=== PATIENT | female | born 1945 | race Caucasian/White ===

== ENCOUNTER 2019-06-03 18:25 | Observation (INO) ==
--- NOTE | 2019-06-03 18:53 | ERNOTE ---
<[facility] - Last Filed: 06/03/19 19:47> Abdominal HPI - General Chief Complaint: Abdominal Pain Time Seen by Provider: 06/03/19 18:38 Source: patient Exam Limitations: no limitations - Immun/Allergies/Home Medications Immunizatons: IMMUNIZATION HX Immunizations Up to Date Yes Allergies/Adverse Reactions: Allergies Sulfa (Sulfonamide Antibiotics) Allergy (Mild, Verified 06/03/19 18:40) RASH, FACE SWELLING Home Medications: HOME MEDICATIONS Aspirin [Aspirin Chewable] 81 mg PO DAILY 12/05/13 [Last Taken Unknown] Calcium Carbonate [Caltrate 600] 2 tab PO DAILY 12/05/13 [Last Taken Unknown] Simvastatin 20 mg PO HS 12/05/13 [Last Taken Unknown] Levothyroxine Sodium [Synthroid] 100 mcg PO DAILY 04/07/14 [Last Taken Unknown] - History of Present Illness Narrative: Patient presents with right lower quadrant abdominal pain that started yesterday morning. She rates her pain is at least moderate in severity. Timing: constant Quality: moderate Activities at Onset: none Associated Symptoms: Present: denies symptoms Prior Abdominal Problems: Present: none Prior Treatment: Absent: recently seen Review of Systems - Review of Systems Constitutional: Present: See HPI EYE: Present: no symptoms reported ENT: Present: no symptoms reported Respiratory: Present: no symptoms reported Cardiology: Present: no symptoms reported Gastrointestinal/Abdominal: Present: See HPI Genitourinary: Present: no symptoms reported Musculoskeletal: Present: no symptoms reported Skin: Present: no symptoms reported Neurological: Present: no symptoms reported Endocrine: Present: no symptoms reported Hematologic/Lymphatic: Present: no symptoms reported Psych: Present: no symptoms reported Medical History (Updated 06/03/19 @ 18:42 by Princess Reynolds RN) History of hypothyroidism Hx of diabetes mellitus Hx of hyperlipidemia Surgical History: Surgical History (Updated 06/03/19 @ 18:42 by Princess Reynolds RN) Hx of cholecystectomy Hx of left mastectomy Family History: Family History (Updated 06/03/19 @ 18:42 by Princess Reynolds RN) Other No pertinent family history Social History: (Last Reviewed 06/03/19 @ 18:42 by Princess Reynolds RN) Tobacco: Smoking Status: Former smoker Physical Exam - Physical Exam General Appearance: Present: wd/wn, alert, moderate distress Head Exam: Present: normal inspection, no evidence of injury Eye Exam: Normal inspection: bilateral, PERRL: bilateral Ears, Nose, Throat: Present: normal ENT inspection, H, normal pharynx Neck: Present: normal inspection, nontender Respiratory: Present: no respiratory distress, normal breath sounds, no accessory muscle use, chest nontender, lungs clear Cardiovascular/Chest: Present: regular rate, rhythm, no murmur, normal peripheral pulses Gastrointestinal/Abdominal: Present: normal bowel sounds, nondistended, soft, no organomegaly, tenderness - Right lower quadrant with an equivocal McBurney sign, rebound Rectal Exam: Present: deferred Back Exam: Present: normal inspection, normal range of motion Extremity Exam: Present: normal inspection, non-tender, no edema, normal range of motion Neurological Exam: Present: alert, oriented, normal mood/affect Skin Exam: Present: normal color, warm/dry Lymphatic Exam: Present: no adenopathy Progress - Results and Orders Patient's Lab Results:: I have reviewed the patient's lab results. - Vital Signs Patient's Vital Signs:: I have reviewed the patient's vital signs. Vital Signs: Vital Signs 06/03/19 18:36 Temperature 36.9 C Pulse Rate 57 L Respiratory Rate 15 Blood Pressure 186/79 H O2 Sat by Pulse Oximetry 95 - CT/Ultrasound CT/Ultrasound Narrative: CT the abdomen and pelvis will be reviewed by Dr. Alberto - Progress/Reassessment Chief Complaint: Abdominal Pain - Transfer of Care Physician Sign Out: Dev Villareal Receiving Physician: Doc Alberto Plan - Plan Plan: Laboratory examination and CT of the abdomen and pelvis will be undertaken here in the emergency department. Patient is very suspicious for possible appendicitis and we will obtain the CAT scan to rule that out. Patient be turned over to Dr. Alberto at 8 PM. Departure Clinical Impression: Appendicitis Qualifiers: Appendicitis type: acute appendicitis Acute appendicitis type: with localized peritonitis Appendicitis gangrene presence: without gangrene Appendicitis perforation presence: without perforation Appendicitis abscess presence: without abscess Qualified Code(s): K35.30 - Acute appendicitis with localized peritonitis, without perforation or gangrene - Departure Disposition: Still a patient Condition: Stable <Doc Alberto - Last Filed: 06/04/19 01:04> Abdominal HPI - Immun/Allergies/Home Medications Immunizatons: IMMUNIZATION HX Immunizations Up to Date Yes Medical History (Updated 06/03/19 @ 22:41 by Doc Alberto DO) History of hypothyroidism Hx of diabetes mellitus Hx of hyperlipidemia Surgical History: Surgical History (Updated 06/03/19 @ 18:42 by Princess Reynolds, NIC) Hx of cholecystectomy Hx of left mastectomy Family History: Family History (Updated 06/03/19 @ 18:42 by Princess Reynolds, RN) Other No pertinent family history Social History: (Last Reviewed 06/03/19 @ 22:48 by Stefanie Judd MD) Tobacco: Smoking Status: Current every day smoker Physical Exam - Physical Exam General Appearance: Present: wd/wn, alert, mild distress Head Exam: Present: normal inspection, no evidence of injury Respiratory: Present: no respiratory distress, no accessory muscle use Gastrointestinal/Abdominal: Present: normal bowel sounds, tenderness - RLQ and right flank, rebound Neurological Exam: Present: alert, oriented, normal mood/affect Progress - Results and Orders Patient's Lab Results:: I have reviewed the patient's lab results. - Vital Signs Patient's Vital Signs:: I have reviewed the patient's vital signs. Vital Signs: Vital Signs 06/03/19 18:36 06/03/19 19:02 06/03/19 21:09 Temperature 36.9 C Pulse Rate 57 L 59 L 54 L Respiratory Rate 15 15 15 Blood Pressure 186/79 H 165/73 H O2 Sat by Pulse Oximetry 95 97 99 06/03/19 21:46 Temperature Pulse Rate 55 L Respiratory Rate 14 Blood Pressure 170/77 H O2 Sat by Pulse Oximetry 96 - CT/Ultrasound CT/Ultrasound Narrative: CT abdomen pelvis with IV and oral contrast: IMPRESSION: Findings consistent with acute appendicitis. No free air. No fluid collections. Electronically signed by Laurie Wooten D.O.. - Progress/Reassessment Progress Note-Subjective: 06/03/19 21:[address] Judd he will be in to see the patient shortly. 06/03/19 22:40 Dr. Judd has seen and evaluated the patient surgery crew is being called in she will go straight to surgery from the ED.
[2019-06-03 19:00] LABS: Hematocrit 40.8 % (37.0-47.0); Hemoglobin 13.4 gm/dL (12.5-16.0); Mean Cell Volume 97.4 fl (78-100); Mean Corpuscular Hgb Conc 32.8 g/dl (32-36); Mean Platelet Volume 9.3 fl (8-12.5); Neutrophil # 4.3 K/mm3 (1.3-6.0); Platelet Count 242 K/mm3 (150-450); Red Blood Count 4.19 M/mm3 (4.2-5.4); Red Cell Distribution Width 13.2 % (11.5-14.0); White Blood Count 7.3 K/mm3 (4.0-10.5)
[2019-06-03] MEDS: NORMAL SALINE 1,000 ML IV ONE (19:01)
[2019-06-03] MEDS ORDERED: DIATRIZOATE MEGLUMINE, SODIUM 30 ML BTL PO ONE (19:03)
[2019-06-03 19:13] LABS: Albumin * 3.4 gm/dl (3.4-5.0); Anion Gap 7.6 mmol/L (6.8-13.8); BUN/Creatinine Ratio 18.3 (9.0-21.6); Bilirubin, Total 0.5 mg/dL (0.0-1.1); Ca. Corrected For Albumin 9.4 mg/dL (8.4-10.2); Calcium * 9.2 mg/dL (7.9-10.9); Carbon Dioxide 31.1 mmol/L (24-32.6); Magnesium 1.8 mg/dL (1.2-2.8); Potassium 3.7 mmol/L (3.4-4.6); Total Protein 6.8 gm/dL (6.2-8.2)
[2019-06-03 19:14] LABS: Urine Bilirubin Negative (NEGATIVE); Urine Blood Negative /ul (NEGATIVE); Urine Ketone Negative (NEGATIVE); Urine Nitrite Negative (NEGATIVE); Urine Protein Negative (NEGATIVE); Urine Urobilinogen Normal (NORMAL)
[2019-06-03 19:22] LABS: Urine Appearance Clear (CLEAR); Urine Bacteria 1+; Urine Color Yellow; Urine RBC None Seen /hpf (0-5); Urine WBC TRACE /hpf (0-5)
[2019-06-03] MEDS ORDERED: LABETALOL HCL 5 MG/ML VIAL IV ONE (22:50)
--- NOTE | 2019-06-03 22:59 | HP ---
Chief Complaint - Chief Complaint Date of Service: 06/03/19 Time of Service: 22:44 Chief Complaint: abdominal pain, appendicitis History of Present Illness: Woke up yesterday with upper abdominal pain. Migrated to [facility]. Saw [employer] and had CBC and U/A. Told her urine was OK but WBC was elevated, and she should be seen for a CT. CT shows acute appendicitis. She had a colonoscopy in 2013. Small tubular adenoma and serrated adenomas removed from cecum---larger polyp was tattooed. Moves her bowels QOD regularly without change. Has frequent heartburn, uses Rolaids. Medical History (Updated 06/03/19 @ 22:41 by Doc Alberto DO) History of hypothyroidism Hx of diabetes mellitus Hx of hyperlipidemia Surgical History: Surgical History (Updated 06/03/19 @ 18:42 by Princess Reynolds, NIC) Hx of cholecystectomy Hx of left mastectomy Family History: Family History (Updated 06/03/19 @ 18:42 by Princess Reynolds, RN) Other No pertinent family history Social History: (Last Reviewed 06/03/19 @ 22:48 by Stefanie Judd MD) Tobacco: Smoking Status: Former smoker Review Of Systems (GEN) - Review of Systems Generalized/Overall Review: Absent: Chills, Fever, Weight loss EENTM: Present: No Symptoms Reported, Other - cataract surgery this year went well Respiratory: Absent: Cough, Shortness of Breath Cardiac: Present: Other - told her LV was large on EKG---no hypertensive meds or chest pain. Absent: Chest Pain, Palpitations Abdominal: Present: Abdominal Pain. Absent: Nausea, Vomiting Genitourinary: Present: No Symptoms Reported Musculoskeletal: Present: No Symptoms Reported Neurological: Present: No Symptoms Reported Skin: Present: No Symptoms Reported Endocrine: Present: No Symptoms Reported Immunizations: IMMUNIZATION HX Immunizations Up to Date Yes Allergies/Adverse Reactions: Allergies Allergy/AdvReac Type Severity Reaction Status Date / Time Sulfa (Sulfonamide Allergy Mild RASH, FACE Verified 06/03/19 18:40 Antibiotics) SWELLING Home Medications: HOME MEDICATIONS Aspirin [Aspirin Chewable] 81 mg PO DAILY 12/05/13 [Last Taken Unknown] Calcium Carbonate [Caltrate 600] 2 tab PO DAILY 12/05/13 [Last Taken Unknown] Simvastatin 20 mg PO HS 12/05/13 [Last Taken Unknown] Levothyroxine Sodium [Synthroid] 100 mcg PO DAILY 04/07/14 [Last Taken Unknown] Exam - Exam Vital Signs: Vital Signs - Last Taken Temp 36.5 C 06/03/19 22:43 Pulse 68 06/03/19 22:43 Resp 16 06/03/19 22:43 BP 196/95 H 06/03/19 22:43 Pulse Ox 96 06/03/19 22:43 Constitutional: Present: Alert, Oriented x3, Cooperative, Well developed, Well nourished, Mild distress ENT Exam: Present: normal ENT inspection, other - dentures. Mallampati 2 Eye Exam: bilateral eye: normal inspection Neck: Present: non-tender, full range of motion, normal inspection Back Exam: Present: normal inspection, no CVA tenderness Breasts: Present: Other - left mastectomy Respiratory: Present: lungs clear, normal breath sounds, no respiratory distress Cardiovascular/Chest: Present: regular rate, rhythm, no murmur, other - varicosities, no calf tenderness Abdomen: Present: other - tender RLQ /Rectal: Present: Exam deferred Extremity: Present: normal range of motion, normal inspection, other - varicosities. Absent: calf tenderness, lower extremity edema Skin Exam: Present: warm/dry Neurologic: Present: life agent II-XII nml as tested, normal cerebellar test, alert, normal mood/affect, oriented x 3 Appearance: Present: appropriate appearance, appropriate insight, neat Eye contact: Present: cooperative, good eye contact, normal speech Thoughts: Present: normal thought pattern Diagnostic Studies: Abnormal Lab Results 06/03/19 06/03/19 06/03/19 Range/Units 18:55 18:55 19:10 RBC 4.19 L (4.2-5.4) M/mm3 MCH 32.0 H (27-31) pg Plasma Sodium 143 H (130-142) mmol/L Chloride 107 H (97-106) mmol/L Est GFR (Non-Af Amer) 49 L (60-130) mL/min Random Glucose 139 H (70-110) mg/dL Urine Glucose (UA) 100 H (NEGATIVE) mg/dL Urine WBC Trace H (0-5) /hpf Urine Bacteria 1+ H (NONE) Laboratory Results WBC 7.3 K/mm3 (4.0-10.5) 06/03/19 18:55 RBC 4.19 M/mm3 (4.2-5.4) L 06/03/19 18:55 Hgb 13.4 gm/dL (12.5-16.0) 06/03/19 18:55 Hct 40.8 % (37.0-47.0) 06/03/19 18:55 MCV 97.4 fl (78-100) 06/03/19 18:55 MCH 32.0 pg (27-31) H 06/03/19 18:55 MCHC 32.8 g/dl (32-36) 06/03/19 18:55 RDW 13.2 % (11.5-14.0) 06/03/19 18:55 Plt Count 242 K/mm3 (150-450) 06/03/19 18:55 MPV 9.3 fl (8-12.5) 06/03/19 18:55 Immature Gran % (Auto) 0.30 % (0.001-0.429) 06/03/19 18:55 Immature Gran # (Auto) 0.02 K/mm3 (0.000-0.0310) 06/03/19 18:55 59.0 % (42-75.0) 06/03/19 18:55 30.6 % (20-51) 06/03/19 18:55 8.1 % (0.0-9) 06/03/19 18:55 1.5 % (0.0-3.0) 06/03/19 18:55 0.5 % (0.0-1.0) 06/03/19 18:55 Nucleated RBC % 0.0 k/mm3 (0-1) 06/03/19 18:55 4.3 K/mm3 (1.3-6.0) 06/03/19 18:55 2.23 k/mm3 (1.5-3.5) 06/03/19 18:55 0.6 k/mm3 (0.0-1.0) 06/03/19 18:55 0.1 k/mm3 (0.0-0.7) 06/03/19 18:55 Absolute Basophils 0.0 k/mm3 (0.0-0.1) 06/03/19 18:55 Sodium 142 mmol/L (132-142) 06/03/19 18:55 143 mmol/L (130-142) H 06/03/19 18:55 Potassium 3.7 mmol/L (3.4-4.6) 06/03/19 18:55 Chloride 107 mmol/L (97-106) H 06/03/19 18:55 Carbon Dioxide 31.1 mmol/L (24-32.6) 06/03/19 18:55 7.6 mmol/L (6.8-13.8) 06/03/19 18:55 BUN 21 mg/dL (3-23) 06/03/19 18:55 1.15 mg/dL (0.4-1.4) 06/03/19 18:55 Est GFR (Non-Af Amer) 49 mL/min (60-130) L 06/03/19 18:55 18.3 (9.0-21.6) 06/03/19 18:55 139 mg/dL (70-110) H 06/03/19 18:55 Calcium 9.2 mg/dL (7.9-10.9) 06/03/19 18:55 Calcium Adj for Albumin 9.4 mg/dL (8.4-10.2) 06/03/19 18:55 Magnesium 1.8 mg/dL (1.2-2.8) 06/03/19 18:55 0.5 mg/dL (0.0-1.1) 06/03/19 18:55 AST 22 U/L (0-48) 06/03/19 18:55 ALT 21 U/L (19-67) 06/03/19 18:55 63 U/L (50-170) 06/03/19 18:55 6.8 gm/dL (6.2-8.2) 06/03/19 18:55 3.4 gm/dl (3.4-5.0) 06/03/19 18:55 187 U/L (73-393) 06/03/19 18:55 Yellow 06/03/19 19:10 Clear (CLEAR) 06/03/19 19:10 7.0 pH (5.0-7.0) 06/03/19 19:10 Ur Specific [place] 1.020 SP.GR. (1.005-1.010) 06/03/19 19:10 Negative mg/dL (NEGATIVE) 10/17/19 19:10 100 mg/dL (NEGATIVE) H 06/03/19 19:10 Negative mg/dL (NEGATIVE) 06/03/19 19:10 Negative /ul (NEGATIVE) 06/03/19 19:10 Negative (NEGATIVE) 06/03/19 19:10 Negative mg/dl (NEGATIVE) 06/03/19 19:10 Normal EU/dl (NORMAL) 06/03/19 19:10 Ur Leukocyte Esterase Negative /ul (NEGATIVE) 06/03/19 19:10 None seen /hpf (0-5) 06/03/19 19:10 Trace /hpf (0-5) H 06/03/19 19:10 Ur Epithelial Cells Trace /hpf (0-5) 06/03/19 19:10 1+ (NONE) H 06/03/19 19:10 No culture indicated 06/03/19 19:10 CT shows appendicitis Assessment/Plan - Assessment/Plan (1) Appendicitis Assessment: Explained appendicitis and its treatment. The risks and possible complications of appendectomy (laparoscopic or open) were explained to her and her family. After an interactive discussion,k her questions were answered to her apparent satisfaction and informed consent was obtained. SCD's. chlorhexidine wipes, IV Mefoxin, Labetalol, will give PPI as well. Problem: Acute Qualifiers: Appendicitis type: acute appendicitis Acute appendicitis type: with localized peritonitis Appendicitis gangrene presence: without gangrene Appendicitis perforation presence: without perforation Appendicitis abscess presence: without abscess Qualified Code(s): K35.30 - Acute appendicitis with localized peritonitis, without perforation or gangrene
[2019-06-03] MEDS ORDERED: ISOPROPYL ALCOHOL 480 APPL BTL MC ONE (23:13)
[2019-06-03] MEDS ORDERED: BUPIVACAINE HCL/EPINEPHRINE 50 ML VIAL ONE (23:14)
[2019-06-03] MEDS ORDERED: MUPIROCIN 22 APPL TUBE TP ONE (23:14)
[2019-06-03] MEDS ORDERED: LIDOCAINE HCL 20 ML VIAL ONE (23:21)
[2019-06-03] MEDS ORDERED: fentaNYL CITRATE/PF 50 MCG/ML AMPUL ONE (23:22)
[2019-06-03] MEDS ORDERED: ONDANSETRON HCL/PF 2 MG/ML VIAL ONE (23:22)
[2019-06-03] MEDS ORDERED: KETOROLAC TROMETHAMINE 30 MG/ML VIAL ONE (23:22)
[2019-06-03] MEDS ORDERED: ROCURONIUM BROMIDE 10 MG/ML VIAL ONE (23:23)
[2019-06-03] MEDS ORDERED: SUCCINYLCHOLINE CHLORIDE 20 MG/ML VIAL ONE (23:23)
[2019-06-04] MEDS: NORMAL SALINE 1,000 ML IV ONE
[2019-06-04] MEDS ORDERED: NEOSTIGMINE METHYLSULFATE 1 MG/ML VIAL ONE (00:28)
[2019-06-04] MEDS ORDERED: GLYCOPYRROLATE 0.2 MG/ML VIAL ONE (00:29)
[2019-06-04] MEDS ORDERED: MUPIROCIN 22 APPL TUBE TP ONE (00:40)
--- NOTE | 2019-06-04 00:57 | ANES ---
Post Anesthesia Discharge - Transfer of Care Transfer of Care handoff given to nurse: Yes - Discharge from PACU Discharge from PACU when meets criteria: Yes
--- NOTE | 2019-06-04 00:57 | ANES ---
Anesthesia Pre Procedure Eval Vitals/Labs: Last Vital Signs Temp 36.5 C 06/03/19 22:43 Pulse 53 L 06/03/19 23:10 Resp 16 06/03/19 23:10 BP 159/70 H 06/03/19 23:21 Pulse Ox 96 06/03/19 23:10 HOME MEDICATIONS Aspirin [Aspirin Chewable] 81 mg PO DAILY 12/05/13 [Last Taken Unknown] Calcium Carbonate [Caltrate 600] 2 tab PO DAILY 12/05/13 [Last Taken Unknown] Simvastatin 20 mg PO HS 12/05/13 [Last Taken Unknown] Levothyroxine Sodium [Synthroid] 100 mcg PO DAILY 04/07/14 [Last Taken Unknown] Allergies/Adverse Reactions: Allergies Allergy/AdvReac Type Severity Reaction Status Date / Time Sulfa (Sulfonamide Allergy Mild RASH, FACE Verified 06/03/19 18:40 Antibiotics) SWELLING - Planned Procedure Planned Procedure: RT SIDED PAIN Medication List Reviewed:: Yes Allergies Verified: Yes Medical History (Updated 06/03/19 @ 22:41 by Doc Alberto DO) History of hypothyroidism Hx of diabetes mellitus Hx of hyperlipidemia Surgical History (Updated 06/03/19 @ 18:42 by Princess Reynolds RN) Hx of cholecystectomy Hx of left mastectomy Family History (Updated 06/03/19 @ 18:42 by Princess Reynolds, RN) Other No pertinent family history - Family Anesthesia History Family History:: no untoward family reactions to anesthesia - Airway/Neck/Teeth Within Normal Limits:: Yes Denture Type: Full upper, Full lower Neck Exam: full range of motion Mallampatti Score: 1 Thyromental (T-M) distance: > 6 cm Mandibulo Hyoid distance: > 3 cm - Respiratory Respiratory Physical: lungs clear Smoking Status: Current every day smoker Sleep Apnea currently treated: No Sleep Apnea by current assessment: No - Cardiovascular Cardiac History: hypertension, hyperlipidemia Tolerate Activity: Good Heart Sounds: S1 & S2, Regular - Anesthesia Assessment and Plan ASA Class: PS, II, E Anesthesia Type Plan: General ET Planned difficult intubation/equipment available: No
[2019-06-04] MEDS ORDERED: ACETAMINOPHEN 325 MG TABLET PO PRN (01:03)
[2019-06-04] MEDS ORDERED: oxyCODONE HCL/ACETAMINOPHEN 1 TAB TABLET PO PRN (01:03)
[2019-06-04] MEDS ORDERED: RINGER'S SOLUTION,LACTATED 1,000 ML IV PRN ×2 (01:03→06:00)
--- NOTE | 2019-06-04 01:37 | ANES ---
Post Anesthesia Assessment - Vital Signs Vitals: Last Vital Signs Temp 36.5 C 06/04/19 01:05 Pulse 51 L 06/04/19 01:05 Resp 22 H 06/04/19 01:05 BP 140/68 06/04/19 01:05 Pulse Ox 93 06/04/19 01:05 Airway Patency: Normal - Mental Status Level Of Consciousness: Awake - Pain Level Pain Score: 0 - N/V Assessment Nausea/Vomiting Presence: None Dehydration:: No
[2019-06-04] MEDS: CEFOXITIN SODIUM 1 GM in DEXTROSE 5 % IN WATER 100 ML IV SCH ×4 (04:45→11:31)
[2019-06-04] MEDS ORDERED: CEFOXITIN SODIUM 2 GM in DEXTROSE 5 % IN WATER 100 ML IV PRN ×2 (06:00)
[2019-06-04] MEDS ORDERED: BUPIVACAINE HCL/EPINEPHRINE 50 ML VIAL IJ PRN (06:00)
--- NOTE | 2019-06-04 08:41 | OR ---
Operative Report - Dictated Report Narrative: Date of operation 06/03/2019 through 06/04/2019 Preoperative diagnosis: Acute appendicitis Postoperative diagnosis: Acute appendicitis with localized peritonitis Operation: Laparoscopic appendectomy Surgeon: SURENDRA Judd MD Anesthesia: Gen. josiah Villagomez CRNA Indications for procedure: The patient is a 74-year-old female who awoke with upper abdominal pain yesterday morning. She saw her local nurse practitioner. She was evaluated with a CBC and urinalysis. Her urine was clean however her white blood cell count was elevated and she was advised to present for CT scan. She was seen in the emergency room and found to have right lower quadrant t enderness. CT scan shows findings compatible with acute appendicitis. Findings: Acute appendicitis with localized peritonitis. Narrative of procedure: The patient was identified preoperatively, and prior to the administration of anesthetic a multidisciplinary timeout was observed. The patient was placed supine, SCDs were applied, and 2 g of intravenous Mefoxin administered. Rapid sequence intubation was performed and general endotracheal anesthetic was administered. The patient's abdomen was prepped with Betadine solution, and a generous operating field outlined with 4 sterile towels. The remainder the patient was covered with a sterile disposable drape. A transverse infraumbilical skin incision was made, and dissection was carried along the umbilical stalk until the fascia of the linea alba was encountered. This was incised. The peritoneum was elevated and incised to allow entry into the abdomen under direct vision. A Hussan cannula was placed and the abdomen insufflated with CO2. The laparoscopic camera was introduced and the abdomen briefly explored. There were adhesions to the undersurface of her right upper quadrant incision. The visible portions of the liver and stomach appeared normal. The small intestine appeared normal. The cecum was visible, however the appendix was not immediately visible. The patient did evidence bradycardia at this juncture so the Weeks cannula was removed and the CO2 evacuated from the abdomen. When the pulse was again above 50, the Weeks cannula was reintroduced, the abdomen insufflated, and the camera reintroduced. She tolerated this. Next under direct vision, 2 additional working ports were inserted through separate skin incisions, one in the suprapubic area one in the left lower quadrant. Port placement was chosen to allow access despite her large abdominal pannus. The apex of the cecum was grasped and retracted cephalad revealing an enlarged appendix. This could be elevated and a photograph obtained. The situation appeared amenable to a laparoscopic approach. The appendiceal base was then transected with a laparoscopic JOSE MARIA stapling device. The stump of the appendix was seen to be hemostatic and gas and liquid tight. The mesoappendix was divided with an application of a JOSE MARIA laparoscopic stapling device. It was seen to be hemostatic. The appendix was placed in an Endobag and parked in the right lower quadrant. The right lower quadrant was suctioned clean and inspected for hemostasis which again appeared complete. The small working ports were then withdrawn under direct vision to ensure entry site hemostasis. The appendix was removed in conjunction with the Hussan cannula. The pneumoperitoneum was allowed to escape, and after receiving a correct sponge needle and instrument count attention was turned to closing the abdomen. The fascia and peritoneum at the umbilicus were approximated with interrupted sutures of #1 Vicryl. Subcutaneous space at the umbilicus was obliterated with interrupted suture of chromic. Skin incisions were approximated with interrupted vertical mattress sutures of 4-0 nylon. The operative sites were washed and dried. Dressings of Bactroban ointment and large Band-Aids were applied to the small port sites. The umbilical incision was dressed with Bactroban ointment, 2 x 2, large Band-Aid, and Medipore tape. The operative procedure was terminated at this point. There was no measurable blood loss. 0.5% Marcaine with epinephrine was used for local anesthetic infiltration area the appendix was submitted to pathology. The patient tolerated the anesthetic and procedure well with exception of the episode of bradycardia. There were no complications and she was transferred to the recovery room awake, extubated, and in stable condition. The patient will be placed in observation bed. Reviewed and electronically signed
--- NOTE | 2019-06-04 13:31 | DS ---
(1) Appendicitis Problem: Acute Qualifiers: Appendicitis type: acute appendicitis Acute appendicitis type: with localized peritonitis Appendicitis gangrene presence: without gangrene Appendicitis perforation presence: without perforation Appendicitis abscess presence: without abscess Qualified Code(s): K35.30 - Acute appendicitis with localized peritonitis, without perforation or gangrene Date of Discharge:: 06/04/19 Description of Stay: She underwent a laparoscopic appendectomy for acute appendicitis with localized peritonitis. She did experience bradycardia when the abdomen was insufflated, however this resolved. Postoperatively her vital signs remained normal. She was able to tolerate p.o. intake and was up without assistance. She received 2 additional doses of Mefoxin. VTE prophylaxis was accomplished with SCDs and early ambulation. She was discharged home with instructions not to lift and not to drive. She is to keep her dressings dry and intact for 48 hours but then may shower and change the dressings daily or as needed. She will take [id number] medication for pain. She has written instructions and phone numbers to call if needed for signs of wound infection or hematoma. A return office appointment will be made for 1 week Procedures Performed: see notes below - Laparoscopic appendectomy Results and Findings: Lab Pending Results 06/03/19 18:55: WBC 7.3, RBC 4.19 L, Hgb 13.4, Hct 40.8, MCV 97.4, MCH 32.0 H, MCHC 32.8, RDW 13.2, Plt Count 242, MPV 9.3, Immature Gran % (Auto) 0.30, Immature Gran # (Auto) 0.02, Neutrophils % 59.0, Lymphocytes % 30.6, Monocytes % 8.1, Eosinophils % 1.5, Basophils % 0.5, Nucleated RBC % 0.0, Neutrophils # 4.3, Lymphocytes # 2.23, Monocytes # 0.6, Eosinophils # 0.1, Absolute Basophils 0.0 06/03/19 18:55: Sodium 142, Plasma Sodium 143 H, Potassium 3.7, Chloride 107 H, Carbon Dioxide 31.1, Anion Gap 7.6, BUN 21, Creatinine 1.15, Est GFR (Non-Af Amer) 49 L, BUN/Creatinine Ratio 18.3, Random Glucose 139 H, Calcium 9.2, Calcium Adj for Albumin 9.4, Magnesium 1.8, Total Bilirubin 0.5, AST 22, ALT 21, Alkaline Phosphatase 63, Total Protein 6.8, Albumin 3.4, Lipase 187 06/03/19 19:10: Urine Color Yellow, Urine Appearance Clear, Urine pH 7.0, Ur Specific Colbert 1.020, Urine Protein Negative, Urine Glucose (UA) 100 H, Urine Ketones Negative, Urine Blood Negative, Urine Nitrate Negative, Urine Bilirubin Negative, Urine Urobilinogen Normal, Ur Leukocyte Esterase Negative, Urine RBC None seen, Urine WBC Trace H, Ur Epithelial Cells Trace, Urine Bacteria 1+ H, Urine Culture Comments No culture indicated 06/04/19 00:30: Pathology Specimen Sent to path Discharge Location: Home Disposition: Home self-care Condition: Good Discharge Activity: Activity as tolerated, No Lifting Discharge Diet: General/regular food Referrals: Pablo Reyes DO [Primary Care Provider] - Problem Oriented Discharge Instructions to Patient/Family: Laparoscopic Appendectomy, Adult, Care After, [id number] Additional Patient Instructions (free text): Trial of Benefiber or MiraLAX. (Instructions given to patient). Arrange follow-up appointment at [phone] 1 week Complete Home Medications List: Complete Home Medication List: Aspirin [Aspirin Chewable] 81 mg PO DAILY 12/05/13 Calcium Carbonate [Caltrate 600] 2 tab PO DAILY 12/05/13 Simvastatin 20 mg PO HS 12/05/13 Levothyroxine Sodium [Synthroid] 100 mcg PO DAILY 04/07/14
[2019-06-04 14:33] VITALS: BP 151/72
== END 2019-06-04 14:45 | disposition home or self-care (01) ==
LOC: ER 18:25 → MS 22:20 → AMB 22:20
PROVIDERS: ADMIT Surgery; ATTEND Surgery
DX: K35.30 Acute appendicitis with localized peritonitis, without perforation or gangrene
CPT/HCPCS: 36415; 74177; 80053; 81001; 83690; 83735; 85025; 88304; 93005; 99285; G0378; J2405; Q9963; Q9967